=== PATIENT | female | born 1940 | race Caucasian/White ===

== ENCOUNTER 2021-07-25 14:24 | Emergency (ER) | payer MEDICARE, MEDICAID ==
[~2021-07-25] VITALS: Ht 160 cm; Wt 72.7 kg
[~2021-07-25 14:24] MED LIST: BENADRYL PO; CALCIUM CARBON500 M1 PO; CENTRUM SILVER1 TA1 PO; CETIRIZINE HYDR10 M1 PO; CETIRIZINE PO; FOLIC ACID800 MCG PO; IBUPROFEN 200200 MG PO; METHOTREXA2.5 MG/TAB PO; PANTOPRAZOLE40 MG PO; POTASSIUM CH2 MEQ/ML PO; PREDNISONE10 MG PO; PRILOSEC10 MG PO; PRILOSEC40 MG PO; SINGULAIR PO
[2021-07-25 14:26] VITALS: TEMP 98.8
[2021-07-25 16:06] VITALS: BP 106/71; PULSE 75
== END 2021-07-25 16:06 | disposition home or self-care (01) ==
LOC: COL.ER 14:24
DX: J95.00 Unspecified tracheostomy complication (principal); D86.0 Sarcoidosis of lung

== ENCOUNTER 2021-11-03 13:50 | Emergency (ER) | payer MEDICARE, MEDICAID ==
[~2021-11-03] VITALS: Ht 157.5 cm; Wt 57.9 kg
[2021-11-03 14:05] VITALS: TEMP 98.5
--- NOTE | 2021-11-03 18:00 | NUR ---
Dr. Rene called for consent order, telephone order obtained for Trach Tube Replacement. CHIKIS Monteiro notified and verbal consent given via phone to this RN and IZA Strauss.
[2021-11-03 19:44] VITALS: BP 126/78; PULSE 116
== END 2021-11-03 19:40 | disposition home or self-care (01) ==
LOC: COL.ER 13:50
DX: R05.9 Cough, unspecified (principal)
CPT/HCPCS: J2704

== ENCOUNTER 2021-11-21 10:08 | Emergency (ER) | payer MEDICARE, MEDICAID ==
[~2021-11-21] VITALS: Ht 162.6 cm; Wt 59.1 kg
[2021-11-21 14:44] VITALS: TEMP 98.1
[2021-11-21 15:40] VITALS: BP 160/71; PULSE 80
== END 2021-11-21 15:45 | disposition home or self-care (01) ==
LOC: COL.ER 10:08
DX: J95.00 Unspecified tracheostomy complication (principal); Z87.891 Personal history of nicotine dependence
CPT/HCPCS: J0330; J2250; J2704; J3010